=== PATIENT | female | born 1945 | race African-American/Black ===

== ENCOUNTER → 2018-10-28 09:51 | Outpatient (POV) | payer MEDICARE, SELFPAY | PROVIDERS: Visit Provider Dermatology | DX: Z00.00 Encounter for general adult medical examination without abnormal findings (principal) ==

== ENCOUNTER → 2018-12-09 09:43 | Outpatient (POV) | payer MEDICARE, SELFPAY | PROVIDERS: Visit Provider Dermatology | DX: Z00.00 Encounter for general adult medical examination without abnormal findings (principal) ==

== ENCOUNTER → 2019-01-20 08:35 | Outpatient (POV) | payer MEDICARE, SELFPAY | PROVIDERS: Visit Provider Dermatology | DX: Z00.00 Encounter for general adult medical examination without abnormal findings (principal) ==

== ENCOUNTER → 2019-07-21 09:43 | Outpatient (POV) | payer MEDICARE, SELFPAY | PROVIDERS: Visit Provider Dermatology | DX: Z00.00 Encounter for general adult medical examination without abnormal findings (principal) ==

== ENCOUNTER → 2019-08-25 09:41 | Outpatient (POV) | payer MEDICARE, SELFPAY | PROVIDERS: Visit Provider Dermatology | DX: Z00.00 Encounter for general adult medical examination without abnormal findings (principal) ==

== ENCOUNTER → 2019-11-20 09:56 | Outpatient (CLI) | payer MEDICARE, SELFPAY ==
--- NOTE | 2019-11-20 10:03 | MM_ITS ---
PROCEDURE: MM DIG SCREENING MAMM BI W/CAD Additional breast tomosynthesis to header and procedure like in a cure tomosynthesis DIGITAL BREAST TOMOSYNTHESIS INCLUDED Patient Age:74Y CLINICAL INDICATION: SCREENING A 74-year-old no hormones but no new complaints. Family history: Sister with breast cancer age 50 COMPARISON: [facility] DIGITAL MAMM-SCREEN BILATERAL from 07/25/2011 [facility] DIGITAL MAMM-SCREEN BILATERAL from 07/22/2012 [facility] DIG MAMM-SCREEN [place] from 07/24/2013 [facility] DIG MAMM-SCREEN [place] from 07/29/2014 [facility] DIG MAMM-SCREEN [place] from 08/12/2015 TECHNIQUE: Standard CC and MLO images were obtained. R2 CAD reviewed. Bilateral digital breast tomosynthesis included FINDINGS: Areas of fairly dense homogeneous breast tissue throughout central breast bilateral. No new suspicious or dominant mass.. Vascular calcifications bilateral but no suspicious calcifications. Right breast. No new areas of significant concern. The small vague round 8 mm ovoid density in the deep central breast at margin of image again observed. This is been present since at least 2012, 2013 and is not changed appreciably-can be followed Left breast: No new areas of concern but similar architecture the IMPRESSION: Stable bilateral mammogram;. No new areas of significant concern. Bilateral follow-up 1 year recommended BI-RAD Category: 1 Negative FOLLOW-UP: 1YR 1 Year Follow-up (A letter has been sent to the patient regarding results of the study.) Dictated by: José Acosta MD 11/24/2019 08:26 Electronically signed by José Acosta MD in [place] 11/24/2019 08:26
== END ==
PROVIDERS: Visit Provider Nurse Practitioner
DX: Z12.31 Encounter for screening mammogram for malignant neoplasm of breast (principal)
CPT/HCPCS: 77063; 77067

== ENCOUNTER → 2019-11-30 09:55 | Outpatient (CLI) | payer MEDICARE, SELFPAY ==
--- NOTE | 2019-11-30 09:56 | CA_ITS ---
APPROVED REPORT Sheep Rancher: YISSEL Laterality: Bilateral Study Quality: Good Indications: bilateral carotid bruits TIA HTN HLP DM EX SMOKER Doppler Spectral Velocity Analysis dICA (R) 71.50/11.70 cm/s dICA (L) 87.80/13.50 cm/s Kareen (R) 57.40/13.10 cm/s Kareen (L) 78.30/14.60 cm/s pICA (R) 58.10/12.00 cm/s pICA (L) 76.30/14.70 cm/s dCCA (R) 42.40/8.20 cm/s dCCA (L) 64.60/12.20 cm/s pCCA (R) 68.40/9.00 cm/s pCCA (L) 69.90/13.20 cm/s Vert (R) 47.50/10.00 cm/s Vert (L) 43.80/8.60 cm/s ICA/CCA 1.70 ICA/CCA 1.40 Conclusion Duplex evaluation demonstrates stenosis of the right proximal internal carotid artery <20% with PSV <140 cm/sec, EDV <100 cm/sec, and IC/CC Ratio <4.0.Duplex evaluation demonstrates stenosis of the left proximal internal carotid artery <20% with PSV <140 cm/sec, EDV <100 cm/sec, and IC/CC Ratio <4.0. Calcification seen at left bulb.Antegrade flow seen bilateral vertebral arteries. Electronically signed by : Dallas Qunitana MD 11/30/2019 17:20:25
== END ==
PROVIDERS: PCP Nurse Practitioner; Visit Provider Internal Medicine Cardiovascular Disease
DX: R09.89 Other specified symptoms and signs involving the circulatory and respiratory systems (principal); E11.69 Type 2 diabetes mellitus with other specified complication; E78.5 Hyperlipidemia, unspecified; I10 Essential (primary) hypertension; I35.8 Other nonrheumatic aortic valve disorders; R00.2 Palpitations; R06.09 Other forms of dyspnea; R42 Dizziness and giddiness; R94.31 Abnormal electrocardiogram [ECG] [EKG]; Z82.49 Family history of ischemic heart disease and other diseases of the circulatory system; Z86.73 Personal history of transient ischemic attack (TIA), and cerebral infarction without residual deficits; Z87.891 Personal history of nicotine dependence; Z79.84 Long term (current) use of oral hypoglycemic drugs
CPT/HCPCS: 93306; 93880

== ENCOUNTER → 2019-12-01 11:45 | Outpatient (CLI) | payer MEDICARE, SELFPAY ==
--- NOTE | 2019-12-01 12:31 | NM_ITS ---
APPROVED REPORT Exam: Nuclear Stress Test Indication: chest pain Patient Location: Outpatient Stress Tech: Chanelle DOWNEY Tech:Jo Ann CanalesCECILY RT(R)(N) Ht: 5 ft 3 in Wt: 157 lbs Bra Size: 36b HR: 50 bpm BP: 174/85 mmHg BSA: 1.74 m2 BMI: 27.8 Procedure: Patient received a 0.4 mg of intravenous Lexiscan, resting heart rate 50 bpm, resting blood pressure 174/85 mmHg, with Lexiscan maximum heart rate achived was 71 bpm which is % of the maximum predicted heart rate and blood pressure was 177/75 mmHg. With Lexiscan, patient denied any complaint of chest pain. Cardiac Stress and Resting SPECT Images: Cardiac Stress and Resting SPECT images were obtained using technetium 99m Myoview 10.6 mCi stress and 32.9 mCi at rest. EF 72% No fixed or reversible defects Conclusion: Normal Electronically signed by : Dallas Quintana MD 12/11/2019 15:18:31
--- NOTE | 2019-12-01 13:13 | HMH.ITSHM ---
Current Home Medications as stated by this patient Leanna Gallardo or customer care representative. []ROSUVASTATIN PRAVASTATIN POTASSIUM MECLIZINE LISINOPRIL GLIPIZIDE FUROSEMIDE BISOPROLOL ASA
== END ==
PROVIDERS: PCP Nurse Practitioner; Visit Provider Internal Medicine Cardiovascular Disease
DX: R00.2 Palpitations (principal); R06.00 Dyspnea, unspecified; R42 Dizziness and giddiness; Z86.73 Personal history of transient ischemic attack (TIA), and cerebral infarction without residual deficits
CPT/HCPCS: 78452; A9502

== ENCOUNTER → 2019-12-02 08:07 | Outpatient (CLI) | payer MEDICARE, SELFPAY | PROVIDERS: PCP Nurse Practitioner; Visit Provider Internal Medicine Cardiovascular Disease | DX: G47.33 Obstructive sleep apnea (adult) (pediatric) (principal); R40.0 Somnolence; R06.83 Snoring | CPT/HCPCS: G0399 ==

== ENCOUNTER → 2019-12-07 07:55 | Outpatient (CLI) | payer MEDICARE, SELFPAY | PROVIDERS: PCP Nurse Practitioner; Visit Provider Nurse Practitioner Family | DX: I10 Essential (primary) hypertension (principal) ==

== ENCOUNTER → 2019-12-11 07:10 | Outpatient (CLI) | payer MEDICARE, SELFPAY ==
--- NOTE | 2019-12-11 | CA_ITS ---
APPROVED REPORT Exam: Exercise Treadmill Technologist: Trini Silveira, Ht: 5 ft 3 in Wt: 157 lbs BSA: 1.74 m2 HR: 51 bpm BP: 185/61 mmHg Rhythm: SINUS TIFFANY Medical History Medical History: HTN, Hyperlipidemia Medications: Amlodipine,,,,, Lisinopril,,,,, Glipizide,,,,, Lasix,,,,, Tylenol,,,,, KCL,,,,, Meclazine,,,,, RoSUVASTATIN,,,,, Allergies: No known drug allergies Cardiac Risk Factors: , Hyperlipidemia, FHX of CAD, HTN Stress Test Details Test: LEXISCAN HR Resting HR: 53 bpm Max Heart Rate (APMHR): 145 bpm Max HR Achieved: 92 bpm Target HR (85% APMHR): 123 bpm % of APMHR: 63 Recovery HR: 61 bpm BP Resting BP: 185.0/61.0 mmHg Max BP: 185.0/61.0 mmHg Recovery BP: 132.0/58.0 mmHg ECG Resting ECG: SINUS TIFFANY Clinical Exercise duration: 04:00 min Highest Stage Achieved: Exercise capacity: 1.0 METs Stress ECG Conclusion LEXISCAN PORTION COMPLETED. PT C/O SHORTNESS OF BREATH AT PEAK INFUSION. RESOLVED IN RECOVERY. NO ECTOPY NOTED. GREATER THAN 1.[address] DEPRESSION. IMAGES TO FOLLOW. Electronically signed by : Prudencio Clark, 12/14/2019 13:46:48
--- NOTE | 2019-12-11 09:41 | HMH.ITSHM ---
Current Home Medications as stated by this patient Leanna Gallardo or novelties sales representative. [] rosuvasatin potassium amlodipine glipizide lisinopril furosemide
== END ==
PROVIDERS: PCP Nurse Practitioner; Visit Provider Nurse Practitioner Family
DX: R00.2 Palpitations (principal); R42 Dizziness and giddiness; R06.00 Dyspnea, unspecified; Z86.73 Personal history of transient ischemic attack (TIA), and cerebral infarction without residual deficits
CPT/HCPCS: 93017; J2785

== ENCOUNTER → 2019-12-17 11:55 | Outpatient (CLI) | payer MEDICARE, SELFPAY ==
[2019-12-17 14:34] LABS: Anion Gap 12.5 mEq/L (5-15); Blood Urea Nitrogen 38 mg/dl (7-17); Calcium 9.6 mg/dl (8.4-10.2); Carbon Dioxide 30 mmol/L (22.0-30.0); Chloride 93 mmol/L (98-107); Estimated Glomerular Filt Rate 27 ml/min (>60); GFR (African American) 33 ML/MIN (>60); Glucose 92 mg/dl (74-100); Potassium 3.5 mmoL/L (3.5-5.1); Sodium 132 mmol/L (136-145)
[2019-12-17 14:41] LABS: NT Pro Brain Natriuretic Pep. 86.7 pg/mL (0-450)
== END ==
PROVIDERS: Visit Provider Internal Medicine Cardiovascular Disease
DX: E11.69 Type 2 diabetes mellitus with other specified complication (principal); E78.5 Hyperlipidemia, unspecified; I10 Essential (primary) hypertension; R00.2 Palpitations; R42 Dizziness and giddiness; R94.31 Abnormal electrocardiogram [ECG] [EKG]; Z82.49 Family history of ischemic heart disease and other diseases of the circulatory system; Z86.73 Personal history of transient ischemic attack (TIA), and cerebral infarction without residual deficits; Z87.891 Personal history of nicotine dependence; R06.00 Dyspnea, unspecified; Z79.84 Long term (current) use of oral hypoglycemic drugs
CPT/HCPCS: 36415; 80048; 83880

== ENCOUNTER → 2020-02-03 14:00 | Outpatient (POV) | payer MEDICARE, SELFPAY | DX: Z00.00 Encounter for general adult medical examination without abnormal findings (principal) ==

== ENCOUNTER → 2020-12-20 09:32 | Outpatient (POV) | payer MEDICARE, SELFPAY | PROVIDERS: Visit Provider Dermatology | DX: Z00.00 Encounter for general adult medical examination without abnormal findings (principal) ==

== ENCOUNTER → 2021-01-10 08:37 | Outpatient (POV) | payer MEDICARE, SELFPAY | PROVIDERS: Visit Provider Dermatology | DX: Z00.00 Encounter for general adult medical examination without abnormal findings (principal) ==

== ENCOUNTER → 2021-02-21 10:23 | Outpatient (POV) | payer MEDICARE, SELFPAY | PROVIDERS: Visit Provider Dermatology | DX: Z00.00 Encounter for general adult medical examination without abnormal findings (principal) ==

== ENCOUNTER 2024-10-19 13:00 | Outpatient (RCR) | payer MEDICARE, SELFPAY | END 2024-10-19 23:59 | disposition home or self-care (01) | LOC: PT 13:00 | PROVIDERS: Visit Provider Nurse Practitioner | DX: M75.01 Adhesive capsulitis of right shoulder (principal) | CPT/HCPCS: 97110; 97163 ==

== ENCOUNTER 2024-11-09 13:00 | Outpatient (RCR) | payer MEDICARE, SELFPAY | END 2024-11-09 23:59 | disposition home or self-care (01) | LOC: PT 13:00 | PROVIDERS: Visit Provider Nurse Practitioner | DX: M75.01 Adhesive capsulitis of right shoulder (principal) | CPT/HCPCS: 97110; 97530 ==